=== PATIENT | female | born 1990 | race Two or more races ===

== ENCOUNTER 2018-09-10 01:44 | Inpatient (IN) | payer BC ==
[2018-09-10] MEDS ORDERED: Tranexamic Acid 1,000 MG in Sodium Chloride 0.9% 100 ML IV PRN (17:33)
[2018-09-10] MEDS ORDERED: Misoprostol 200 MCG Tab PO PRN (17:33)
[2018-09-10] MEDS ORDERED: Sodium Chloride 0.9% 2.5 ML Syringe FLUSH PRN (17:33)
[2018-09-10] MEDS ORDERED: Nalbuphine 10 MG/1 ML Vial IVPUSH PRN (17:33)
[2018-09-10] MEDS ORDERED: Water For Irrigation,Sterile 1,000 ML Container IRR PRN (17:33)
[2018-09-10] MEDS ORDERED: Sodium Chloride 0.9% 10 ML Syringe FLUSH PRN (17:33)
[2018-09-10] MEDS ORDERED: Carboprost Tromethamine 250 MCG/1 ML Amp IM PRN (17:33)
[2018-09-10] MEDS ORDERED: Methylergonovine 0.2 MG/1 ML Amp IM PRN (17:33)
[2018-09-10] MEDS ORDERED: Sodium Chloride 0.9% 10 ML SDV IV PRN (17:33)
[2018-09-10] MEDS ORDERED: Lidocaine 1% 50 ML MDV INJECT PRN (17:33)
[2018-09-10] MEDS ORDERED: Terbutaline 1 MG/ML SDV SUBCUT PRN (17:38)
[2018-09-10] MEDS ORDERED: Misoprostol 25 MCG (1/4 of 100 MCG) Tab VAG PRN ×2 (17:38)
[2018-09-10] MEDS ORDERED: Ondansetron 4 MG/2 ML SDV IVPUSH PRN (17:42)
[2018-09-10] MEDS ORDERED: Oxytocin/0.9 % Sodium Chloride 30 UNIT/500 ML BAG IV SCH ×2 (17:45)
[2018-09-11] MEDS: Butorphanol 1 MG/ML SDV IVPUSH PRN ×4 (03:38→08:56)
[2018-09-11] MEDS: Lactated Ringers 1,000 ML IV SCH ×2 (09:10→12:31)
--- NOTE | 2018-09-11 09:30 | PCM.PREANE ---
Preanesthetic Assessment - Anesthesia/Transfusion/Family Hx Anesthesia History: Prior Anesthesia Without Reaction Family History of Anesthesia Reaction: No Transfusion History: No Prior Transfusion(s) - Review of Systems General: No Symptoms Pulmonary: No Symptoms Cardiovascular: No Symptoms Gastrointestinal: No Symptoms Neurological: No Symptoms Other: Reports: None - Physical Assessment Height: 5 ft 5 in Weight: 105.687 kg ASA Class: 2 Mental Status: Alert & Oriented x3 Airway Class: Mallampati = 2 Dentition: Reports: Normal Dentition Thyro-Mental Finger Breadths: 3 Mouth Opening Finger Breadths: 3 ROM/Head Extension: Full Lungs: Clear to Auscultation, Normal Respiratory Effort Cardiovascular: Regular Rate, Regular Rhythm - Lab Values: Laboratory Last Values WBC 13.46 K/uL (4.0-11.0) H 09/10/18 18: RBC 4.62 M/uL (4.30-5.90) 09/10/18 18:01 Hgb 14.3 g/dL (12.0-16.0) 09/10/18 18: Hct 42.1 % (36.0-46.0) 09/10/18 18:01 MCV 91.1 fL (80.0-98.0) 09/10/18 18:01 MCH 31.0 pg (27.0-32.0) 09/10/18 18:01 MCHC 34.0 g/dL (31.0-37.0) 09/10/18 18:01 RDW Std Deviation 46.2 fl (28.0-62.0) 09/10/18 18:01 RDW Coeff of Beatrice 14 % (11.0-15.0) 09/10/18 18:01 Plt Count 266 K/uL (150-400) 09/10/18 18:01 MPV 10.10 fL (7.40-12.00) 09/10/18 18:01 Nucleated RBC % 0.0 /100WBC 09/10/18 18:01 Nucleated RBCs # 0 K/uL 09/10/18 18:01 Blood Type O POSITIVE 09/10/18 18:01 Antibody Screen NEGATIVE 09/10/18 18:01 - Allergies Allergies/Adverse Reactions: Allergies Allergy/AdvReac Type Severity Reaction Status Date / Time No Known Allergies Allergy Verified 07/25/18 13:16 - Acknowledgements Anesthesia Type Planned: Epidural Pt an Appropriate Candidate for the Planned Anesthesia: Yes Alternatives and Risks of Anesthesia Discussed w Pt/Guardian: Yes Pt/Guardian Understands and Agrees with Anesthesia Plan: Yes PreAnesthesia Questionnaire HEENT History: Reports: None Cardiovascular History: Reports: None Respiratory History: Reports: None Gastrointestinal History: Reports: Chronic Constipation, GERD Genitourinary History: Reports: None Musculoskeletal History: Reports: None Neurological History: Reports: Migraines Psychiatric History: Reports: None Endocrine/Metabolic History: Reports: Obesity/BMI 30+ Hematologic History: Reports: None Immunologic History: Reports: None Oncologic (Cancer) History: Reports: None Dermatologic History: Reports: None - Infectious Disease History Infectious Disease History: Reports: Hepatitis C - Past Surgical History Head Surgeries/Procedures: Reports: Other (See Below) - SUBSTANCE USE Tobacco Use Within Last Twelve Months: No Recreational Drug Use History: No - HOME MEDS Home Medications: Home Meds Cyclobenzaprine [Flexeril] 10 mg PO TID PRN 7 Days tablet 04/28/16 [Rx] Diclofenac Sodium [Voltaren] 50 mg PO TIDMEALS #20 tab.ec 04/28/16 [Rx] - CURRENT (IN HOUSE) MEDS Current Meds: Current Medications Butorphanol Tartrate (Stadol) 1 mg IVPUSH Q1H PRN PRN Reason: Pain Last Admin: 09/11/18 08:56 Dose: 1 mg Carboprost Tromethamine (Hemabate Ds) 250 mcg IM ASDIRECTED PRN PRN Reason: Post Hemorrhage Lactated Ringer's (Ringers, Lactated) 1,000 mls @ 150 mls/hr IV ASDIRECTED JAVI Oxytocin/Sodium Chloride (Oxytocin 30 Unit/500 Ml-Ns) 30 unit in 500 mls @ 500 mls/hr IV TITRATE JAVI Tranexamic Acid 1,000 mg/ (Sodium Chloride) 110 mls @ 660 mls/hr IV ONETIME PRN PRN Reason: Bleeding Oxytocin/Sodium Chloride (Oxytocin 30 Unit/500 Ml-Ns) 30 unit in 500 mls @ 2 mls/hr IV TITRATE JAVI; Protocol Last Titration: 09/11/18 06:45 Dose: 6 munits/min, 6 mls/hr Lidocaine HCl (Xylocaine 1%) 50 ml INJECT ONETIME PRN PRN Reason: Laceration repair Methylergonovine Maleate (Methergine) 0.2 mg IM ASDIRECTED PRN PRN Reason: Post Hemorrhage Misoprostol (Cytotec) 200 mcg PO ONETIME PRN PRN Reason: Post Hemorrhage Misoprostol (Cytotec) 25 mcg VAG ONETIME PRN PRN Reason: Cervical Ripening Last Admin: 09/10/18 18:29 Dose: 25 mcg Misoprostol (Cytotec) 25 mcg VAG Q6H PRN PRN Reason: Cervical Ripening Nalbuphine HCl (Nubain) 10 mg IVPUSH Q1H PRN PRN Reason: Pain (severe 7-10) Ondansetron HCl (Zofran) 4 mg IVPUSH Q6H PRN PRN Reason: Nausea/Vomiting Sodium Chloride (Saline Flush) 10 ml FLUSH ASDIRECTED PRN PRN Reason: Keep Vein Open Sodium Chloride (Saline Flush) 2.5 ml FLUSH ASDIRECTED PRN PRN Reason: Keep Vein Open Sodium Chloride (Normal Saline) 10 ml IV ASDIRECTED PRN PRN Reason: IV Use Sterile Water (Sterile Water For Irrigation) 1,000 ml IRR ASDIRECTED PRN PRN Reason: delivery Terbutaline Sulfate (Brethine) 0.25 mg SUBCUT ASDIRECTED PRN PRN Reason: Tacysystole
[2018-09-12] MEDS ORDERED: Morphine PF 10 MG/10 ML SDV ONE (01:20)
[2018-09-12] MEDS ORDERED: Meperidine PF 25 MG/ML Syringe ONE (01:50)
[2018-09-12] MEDS ORDERED: Octyl 2-Cyanoacrylate 1 Tube ONE (02:08)
[2018-09-12] MEDS ORDERED: Nalbuphine 10 MG/1 ML Vial IVPUSH PRN (02:31)
[2018-09-12] MEDS ORDERED: fentaNYL 100 MCG/2 ML SDV IVPUSH PRN (02:31)
--- NOTE | 2018-09-12 02:48 | PCM.OPNOTE ---
- General Post-Op/Procedure Note Date of Surgery/Procedure: 09/12/18 Operative Procedure(s): primary low transverse Findings: liveborn female 7/9 ROP position. Pre Op Diagnosis: 41 4/7 weeks, postdates induction arrest of dilatation. Post-Op Diagnosis: Same Primary Surgeon: Cristina Martinez Secondary Surgeon: Lakshmi Espinal Anesthesia Provider: Matt Tinoco Ribber: Matt Veras Pathology: none Fluid Replacement, Intraop: 900 Output, Urine Amount: 250 EBL in mLs: 500 Complications: None Known Condition: Good Free Text/Narrative:: Intake & Output 09/11/18 09/11/18 09/12/18 14:59 22:59 06:59 Output Total 250 Balance -250
[2018-09-12] MEDS ORDERED: Bisacodyl 10 MG Supp RECTAL PRN (02:50)
[2018-09-12] MEDS ORDERED: Acetaminophen/oxyCODONE 325-5 MG Tab PO PRN ×2 (02:50)
[2018-09-12] MEDS ORDERED: Ondansetron 4 MG/2 ML SDV IVPUSH PRN (02:50)
[2018-09-12] MEDS ORDERED: diphenhydrAMINE 50 MG/ML SDV IVPUSH PRN (02:50)
[2018-09-12] MEDS ORDERED: Ibuprofen 800 MG Tab PO PRN (02:50)
--- NOTE | 2018-09-12 02:53 | PCM.POSTAN ---
POST ANESTHESIA ASSESSMENT - MENTAL STATUS Mental Status: Alert, Oriented - VITAL SIGNS Pulse Rate: 102 SaO2: 97 Resp Rate: 20 Blood Pressure: 116/68 - RESPIRATORY Respiratory Status: Respiratory Rate WNL, Airway Patent, O2 Saturation Stable - CARDIOVASCULAR CV Status: Pulse Rate WNL, Blood Pressure Stable - GASTROINTESTINAL GI Status: No Symptoms - PAIN Pain Score: 0 - POST OP HYDRATION Hydration Status: Adequate & Stable
[2018-09-12] MEDS ORDERED: Ketorolac 30 MG/ML SDV ONE (02:59)
[2018-09-12] MEDS ORDERED: Lactated Ringers 1,000 ML IV SCH (03:00)
[2018-09-12] MEDS: Ketorolac 30 MG/ML SDV IVPUSH SCH ×4 (03:00→21:17)
--- NOTE | 2018-09-12 03:31 | OR ---
SURGEON: Cristina Martinez M.D. DATE OF PROCEDURE: 09/12/2018 PREOPERATIVE DIAGNOSES: 1. A 41 and 4/7th week intrauterine . 2. Postdates induction of labor. 3. Arrest of dilatation. POSTOPERATIVE DIAGNOSES: 1. A 41 and 4/7th week intrauterine . 2. Postdates induction of labor. 3. Arrest of dilatation. PROCEDURE: Primary low-transverse section. PRIMARY SURGEON: Cristina Martinez M.D. ANESTHESIA: Epidural. ESTIMATED BLOOD LOSS: 500 mL. FLUIDS: 900 mL of crystalloid. URINE OUTPUT: 250 mL. FINDINGS: Live-born female, score 7 and 9. Weight of 3960 g. Right occiput, posterior position. Normal-appearing uterus, tubes, and ovaries. COMPLICATIONS: None known. DISPOSITION: Stable to recovery. BRIEF HISTORY: This is a 28-year-old female, G1, P0. She presents at 41 and 2/7th weeks' gestation for induction of labor. She received Cytotec overnight. She spontaneously ruptured early at about 7 in the morning on 09/11. She was noted to have meconium. She had alternating episodes of category 1 heart tones with episodes of minimal variability, but no decelerations throughout her labor. She had an intrauterine pressure catheter placed at approximately 1 p.m. on 09/11, and Pitocin had been initiated, and there were low amplitude frequent contractions every 1 to 2 minutes. Therefore, the Pitocin was discontinued and restarted and continued up to a maximum of 20 milliunits per minute. She by 7:00 p.m. had been progressed to 6 cm, by 1:00 a.m., she had not progressed beyond this, and the baby was beginning to become tachycardic in the 160s to 170s. Therefore, I recommended proceeding with a primary delivery due to arrest of dilatation with risks discussed including bleeding, infection, injury to bowel, bladder, blood vessels, ureters, or other organs; risk of thromboembolic event, risk of anesthesia. Understanding all these risks, she does desire to proceed. DESCRIPTION OF PROCEDURE: With the patient in the left tilt position, under adequate epidural analgesia, the abdomen was prepped with chlorhexidine and draped in the usual fashion for abdominal surgery. SCDs were in place. Petty catheter had been placed, and an appropriate time-out was held. Please note, immediately prior to the time-out for this surgery, I was called out of the room for a very brief time period for vaginal delivery and returned and proceeded with the . After documentation of adequate analgesia, a transverse curvilinear incision was made 2 cm cephalad from the pubic symphysis and carried through subcutaneous tissue to the fascia, which was scored transversely in the midline. The fascial incision was extended laterally using curved Espinal scissors. The fascia was elevated from the underlying rectus muscle using sharp and blunt dissection. The rectus muscles were bluntly in the midline, and the incision was extended using sharp and blunt dissection. The Bret O retractor was placed. The visceroperitoneum over the lower uterine segment was incised to develop an adequate bladder flap. A transverse curvilinear incision was made over the lower uterine segment using a scalpel, and a finger was used to enter the amniotic cavity. Thick meconium was noted. The head was delivered via the uterine incision with subsequent delivery of the 's shoulders and body. The infant was bulb suctioned by nose and mouth, and after the cord had ceased to pulsate, it was doubly clamped and cut. The infant was handed to the clay miller in attendance at delivery. The was a live-born female, score of 7 and 9, weighing 3960 g. Cord blood was collected for cord ABGs as well as routine cord blood sampling. Pitocin was initiated after delivery of the to assist with deliver the placenta, which was delivered with fundal massage. The uterus was cleaned with a dry laparotomy tape. The uterine incision was closed with a running lock suture of 0 Polysorb followed by an imbricating layer of 0 Polysorb, [id number] suture was placed in the midline for complete hemostasis. The pericolic gutters and posterior cul-de-sac were irrigated. The tubes and ovaries were inspected and were normal. The uterine incision was inspected and was hemostatic. The Bret O retractor was removed. The uterine incision was again inspected in room and confirmed hemostasis. The rectus muscle and peritoneum were loosely approximated in midline using a running mattress suture of 0 Polysorb. The posterior aspect of the fascia was inspected and was hemostatic. The fascial incision was closed with a running suture of 0 Polysorb. The subcutaneous tissue was irrigated. Any areas of bleeding that were noted were cauterized. The deep subcutaneous tissue was reapproximated with 0 Polysorb. The skin was closed with a running suture of 3-0 Monocryl, followed by Dermabond. Final sponge, needle, and instrument counts were reported as correct. There were no complications. The mother and baby are in recovery in good condition. SIDRA BOOTHE /[id number]
[2018-09-12] MEDS: Docusate Sodium 100 MG Cap PO SCH ×2 (09:00→21:18)
--- NOTE | 2018-09-12 09:31 | PCM48HPAN ---
Post Anesthesia Note - EVALUATION WITHIN 48HRS OF ANESTHETIC Vital Signs in Normal Range: Yes Patient Participated in Evaluation: Yes Respiratory Function Stable: Yes Airway Patent: Yes Cardiovascular Function Stable: Yes Hydration Status Stable: Yes Pain Control Satisfactory: Yes Nausea and Vomiting Control Satisfactory: Yes Mental Status Recovered: Yes Pulse Rate: 96 SaO2: 100 (2 LPM) Resp Rate: 18 Blood Pressure: 114/66
--- NOTE | 2018-09-12 09:53 | PCM.PNPP ---
- General Info Date of Service: 09/12/18 Functional Status: Reports: Pain Controlled, Tolerating Diet. Denies: Ambulating, Urinating - Patient Data Vital Signs - Most Recent: Last Vital Signs Temp 36.6 C 09/12/18 08:00 Pulse 96 09/12/18 09:30 Resp 18 09/12/18 09:30 BP 114/66 09/12/18 09:30 Pulse Ox 100 09/12/18 09:30 Weight - Most Recent: 105.687 kg I&O - Last 24 Hours: Intake & Output 09/11/18 09/12/18 09/12/18 22:59 06:59 14:59 Intake Total 2300 Output Total 700 Balance 1600 Lab Results - Last 24 Hours: Laboratory Results - last 24 hr 09/12/18 Range/Units 01:45 Cord VBG pH 7.358 (7.25-7.45) Cord VBG Base Excess -3 (-10--2) Med Orders - Current: Current Medications Bisacodyl (Dulcolax) 10 mg RECTAL ONETIME PRN PRN Reason: Constipation Diphenhydramine HCl (Benadryl) 25 mg IVPUSH Q6H PRN PRN Reason: Itching or Nausea Docusate Sodium (Colace) 100 mg PO BID [facility] Last Admin: 09/12/18 09:00 Dose: 100 mg Emollient Ointment (Lansinoh Hpa) 0 gm TOP ASDIRECTED PRN PRN Reason: Sore Nipples Fentanyl (Sublimaze) 50 mcg IVPUSH Q5M PRN PRN Reason: Pain (severe 7-10) Stop: 09/13/18 02:32 Lactated Ringer's (Ringers, Lactated) 1,000 mls @ 125 mls/hr IV ASDIRECTED [facility] Last Admin: 09/12/18 03:59 Dose: 125 mls/hr Ibuprofen (Motrin) 800 mg PO Q8H PRN PRN Reason: mild pain or fever Ketorolac Tromethamine (Toradol) 30 mg IVPUSH Q6H [facility] Stop: 09/13/18 03:01 Last Admin: 09/12/18 09:00 Dose: 30 mg Nalbuphine HCl (Nubain) 2.5 mg IVPUSH Q3H PRN PRN Reason: Pruritis Stop: 09/13/18 02:32 Ondansetron HCl (Zofran) 4 mg IVPUSH Q4H PRN PRN Reason: Nausea/Vomiting Oxycodone/Acetaminophen (Percocet 325-5 Mg) 1 tab PO ONETIME PRN PRN Reason: Pain (moderate 4-6) Oxycodone/Acetaminophen (Percocet 325-5 Mg) 1 tab PO Q4H PRN PRN Reason: Pain (moderate 4-6) Oxycodone/Acetaminophen (Percocet 325-5 Mg) 2 tab PO Q4H PRN PRN Reason: Pain (moderate 4-6) Discontinued Medications Butorphanol Tartrate (Stadol) 1 mg IVPUSH Q1H PRN PRN Reason: Pain Last Admin: 09/11/18 08:56 Dose: 1 mg Carboprost Tromethamine (Hemabate Ds) 250 mcg IM ASDIRECTED PRN PRN Reason: Post Hemorrhage Lactated Ringer's (Ringers, Lactated) 1,000 mls @ 150 mls/hr IV ASDIRECTED JAVI Last Admin: 09/11/18 12:31 Dose: 150 mls/hr Oxytocin/Sodium Chloride (Oxytocin 30 Unit/500 Ml-Ns) 30 unit in 500 mls @ 500 mls/hr IV TITRATE JAVI Tranexamic Acid 1,000 mg/ (Sodium Chloride) 110 mls @ 660 mls/hr IV ONETIME PRN PRN Reason: Bleeding Oxytocin/Sodium Chloride (Oxytocin 30 Unit/500 Ml-Ns) 30 unit in 500 mls @ 2 mls/hr IV TITRATE JAVI; Protocol Last Titration: 09/12/18 00:20 Dose: 28 munits/min, 28 mls/hr Fentanyl/Bupivacaine HCl (Hjodzwvf-Ialsw-Ax 2 Mcg/Ml-0.125%) Confirm Administered Dose 100 mls @ as directed .ROUTE .STK-MED ONE Stop: 09/11/18 09:32 Fentanyl/Bupivacaine HCl (Cvkhvdcg-Bndpw-Ni 2 Mcg/Ml-0.125%) Confirm Administered Dose 100 mls @ as directed .ROUTE .STK-MED ONE Stop: 09/11/18 19:53 Ibuprofen (Motrin) 800 mg PO Q8H PRN PRN Reason: mild pain or fever Ketorolac Tromethamine (Toradol) Confirm Administered Dose 30 mg .ROUTE .STK- MED ONE Stop: 09/12/18 03:00 Last Admin: 09/12/18 08:51 Dose: Not Given Lidocaine HCl (Xylocaine 1%) 50 ml INJECT ONETIME PRN PRN Reason: Laceration repair Meperidine HCl (Demerol) Confirm Administered Dose 25 mg .ROUTE .STK-MED ONE Stop: 09/12/18 01:51 Methylergonovine Maleate (Methergine) 0.2 mg IM ASDIRECTED PRN PRN Reason: Post Hemorrhage Misoprostol (Cytotec) 200 mcg PO ONETIME PRN PRN Reason: Post Hemorrhage Misoprostol (Cytotec) 25 mcg VAG ONETIME PRN PRN Reason: Cervical Ripening Last Admin: 09/10/18 18:29 Dose: 25 mcg Misoprostol (Cytotec) 25 mcg VAG Q6H PRN PRN Reason: Cervical Ripening Morphine Sulfate (Duramorph Pf) Confirm Administered Dose 10 mg .ROUTE .STK-MED ONE Stop: 09/12/18 01:21 Nalbuphine HCl (Nubain) 10 mg IVPUSH Q1H PRN PRN Reason: Pain (severe 7-10) Octyl Cyanoacrylate (Dermabond Advance) Confirm Administered Dose 1 applic .ROUTE .STExtend Media-MED ONE Stop: 09/12/18 02:09 Ondansetron HCl (Zofran) 4 mg IVPUSH Q6H PRN PRN Reason: Nausea/Vomiting Sodium Chloride (Saline Flush) 10 ml FLUSH ASDIRECTED PRN PRN Reason: Keep Vein Open Sodium Chloride (Saline Flush) 2.5 ml FLUSH ASDIRECTED PRN PRN Reason: Keep Vein Open Sodium Chloride (Normal Saline) 10 ml IV ASDIRECTED PRN PRN Reason: IV Use Sterile Water (Sterile Water For Irrigation) 1,000 ml IRR ASDIRECTED PRN PRN Reason: delivery Terbutaline Sulfate (Brethine) 0.25 mg SUBCUT ASDIRECTED PRN PRN Reason: Tacysystole - Interaction Infant Disposition, : in Room with Family Interaction: Holding Infant Feeding: Breastfed ; Nursed Well Support Person: , Mother - Recovery Exam Fundal Tone: Firm Fundal Level: 1 Fingerbreadths Below Umbilicus Fundal Placement: Midline Lochia Amount: Small Lochia Color: Rubra/Red Perineum Description: Intact, Minimal Bruising/Swelling Episiotomy/Laceration: None Bladder Status: Indwelling Catheter in Place Urinary Elimination: Indwelling Catheter - Exam General: Alert, Oriented HEENT: Pupils Equal Lungs: Normal Respiratory Effort GI/Abdominal Exam: Normal Bowel Sounds, Soft, Non-Tender Extremities: Normal Inspection, Non-Tender. No: No Pedal Edema (2+) Skin: Warm, Dry, Intact Wound/Incisions: Dressing Dry and Intact Neurological: No New Focal Deficit Psy/Mental Status: Alert, Normal Affect, Normal Mood - Problem List & Annotations (1) Arrest of dilation, delivered, current hospitalization SNOMED Code(s): 89361237, 706122071 Code(s): O62.1 - SECONDARY UTERINE INERTIA Status: Acute Current Visit: Yes (2) delivery delivered SNOMED Code(s): 339308628 Code(s): O82 - ENCOUNTER FOR DELIVERY WITHOUT INDICATION Status: Acute Current Visit: Yes - Problem List Review Problem List Initiated/Reviewed/Updated: Yes - My Orders Last 24 Hours: My Active Orders 09/12/18 02:50 Patient Status [ADT] Routine Ambulate [RC] PER UNIT ROUTINE Communication Order [RC] PER UNIT ROUTINE Communication Order [RC] PER UNIT ROUTINE Communication Order [RC] Per Unit Routine May Shower [RC] ASDIRECTED RT Incentive Spirometry [RC] Q2HWA Vital Signs [RC] PER UNIT ROUTINE Acetaminophen/oxyCODONE [Percocet 325-5 MG] 1 tab PO Q4H PRN Acetaminophen/oxyCODONE [Percocet 325-5 MG] 2 tab PO Q4H PRN Bisacodyl [Dulcolax] 10 mg RECTAL ONETIME PRN Lanolin [Lansinoh HPA] See Dose Instructions TOP ASDIRECTED PRN Ondansetron [Zofran] 4 mg IVPUSH Q4H PRN diphenhydrAMINE [Benadryl] 25 mg IVPUSH Q6H PRN Abdominal Binder [OM.PC] Urgent Assess Lochia [WOMSER] Per Unit Routine Assess Uterine Involution [WOMSER] Per Unit Routine Breast Pump [WOMSER] Per Unit Routine Peripheral IV Discontinue [OM.PC] Routine Sequential Compression Device [OM.PC] Per Unit Routine Resuscitation Status Routine 09/12/18 02:51 Antiembolic Devices [RC] PER UNIT ROUTINE Notify Provider Intake and Out [RC] ASDIRECTED Notify Provider Vital Signs [RC] ASDIRECTED 09/12/18 03:00 Ketorolac [Toradol] 30 mg IVPUSH Q6H Lactated Ringers [Ringers, Lactated] 1,000 ml IV ASDIRECTED 09/12/18 09:00 Docusate Sodium [Colace] 100 mg PO BID 09/12/18 Breakfast Regular Diet [DIET] 09/13/18 05:11 HEMOGLOBIN/HEMATOCRIT,HH [HEME] Timed 09/13/18 11:00 Ibuprofen [Motrin] 800 mg PO Q8H PRN - Assessment Assessment:: POD#0 after for arrest of dilatation, gestational diabetes. Stable, pain well controlled. - Plan Plan:: continue postop care.
[2018-09-13] MEDS: Lanolin 100% Cream 7 GM Tube TOP PRN (00:28)
[2018-09-13] MEDS: Ketorolac 30 MG/ML SDV IVPUSH SCH (03:31)
[2018-09-13 06:30] LABS: CHLORIDE,CL 107 mmol/L (98-107); SODIUM,NA 139 mmol/L (136-145)
[2018-09-13] MEDS: Docusate Sodium 100 MG Cap PO SCH ×2 (08:17→21:10)
[2018-09-13] MEDS: Ibuprofen 800 MG Tab PO PRN ×2 (13:54→22:46)
[2018-09-13] MEDS: Acetaminophen/oxyCODONE 325-5 MG Tab PO PRN (16:27)
[2018-09-14] MEDS: Acetaminophen/oxyCODONE 325-5 MG Tab PO PRN ×2 (01:59→09:09)
[2018-09-14] MEDS: Docusate Sodium 100 MG Cap PO SCH ×2 (07:53→08:27)
[2018-09-14] MEDS: Ibuprofen 800 MG Tab PO PRN (07:53)
[2018-09-14] MEDS: Lanolin 100% Cream 7 GM Tube TOP PRN (07:54)
[2018-09-14 08:25] VITALS: BP 138/74
--- NOTE | 2018-09-14 09:04 | PCM.PNPP ---
- General Info Date of Service: 09/14/18 Functional Status: Reports: Pain Controlled, Tolerating Diet, Ambulating, Urinating, Other (worried about breast milk, baby having good wet diapers. ) - Review of Systems General: Reports: No Symptoms HEENT: Reports: No Symptoms Pulmonary: Reports: No Symptoms Cardiovascular: Reports: No Symptoms Gastrointestinal: Reports: No Symptoms Genitourinary: Reports: No Symptoms Musculoskeletal: Reports: No Symptoms Skin: Reports: No Symptoms Neurological: Reports: No Symptoms Psychiatric: Reports: No Symptoms - Patient Data Vital Signs - Most Recent: Last Vital Signs Temp 36.6 C 09/14/18 07:32 Pulse 88 09/14/18 07:32 Resp 16 09/14/18 07:32 BP 138/74 09/14/18 07:32 Pulse Ox 98 09/14/18 07:32 Weight - Most Recent: 105.687 kg Med Orders - Current: Current Medications Bisacodyl (Dulcolax) 10 mg RECTAL ONETIME PRN PRN Reason: Constipation Diphenhydramine HCl (Benadryl) 25 mg IVPUSH Q6H PRN PRN Reason: Itching or Nausea Docusate Sodium (Colace) 100 mg PO BID [facility] Last Admin: 09/14/18 08:27 Dose: Not Given Emollient Ointment (Lansinoh Hpa) 0 gm TOP ASDIRECTED PRN PRN Reason: Sore Nipples Last Admin: 09/14/18 07:54 Dose: 1 tube Lactated Ringer's (Ringers, Lactated) 1,000 mls @ 125 mls/hr IV ASDIRECTED [facility] Last Admin: 09/12/18 03:59 Dose: 125 mls/hr Ibuprofen (Motrin) 800 mg PO Q8H PRN PRN Reason: mild pain or fever Last Admin: 09/14/18 07:53 Dose: 800 mg Ondansetron HCl (Zofran) 4 mg IVPUSH Q4H PRN PRN Reason: Nausea/Vomiting Oxycodone/Acetaminophen (Percocet 325-5 Mg) 1 tab PO ONETIME PRN PRN Reason: Pain (moderate 4-6) Last Admin: 09/14/18 01:59 Dose: 1 tab Oxycodone/Acetaminophen (Percocet 325-5 Mg) 1 tab PO Q4H PRN PRN Reason: Pain (moderate 4-6) Last Admin: 09/13/18 08:16 Dose: 1 tab Oxycodone/Acetaminophen (Percocet 325-5 Mg) 2 tab PO Q4H PRN PRN Reason: Pain (moderate 4-6) Discontinued Medications Butorphanol Tartrate (Stadol) 1 mg IVPUSH Q1H PRN PRN Reason: Pain Last Admin: 09/11/18 08:56 Dose: 1 mg Carboprost Tromethamine (Hemabate Ds) 250 mcg IM ASDIRECTED PRN PRN Reason: Post Hemorrhage Fentanyl (Sublimaze) 50 mcg IVPUSH Q5M PRN PRN Reason: Pain (severe 7-10) Stop: 09/13/18 02:32 Lactated Ringer's (Ringers, Lactated) 1,000 mls @ 150 mls/hr IV ASDIRECTED [facility]AVI Last Admin: 09/11/18 12:31 Dose: 150 mls/hr Oxytocin/Sodium Chloride (Oxytocin 30 Unit/500 Ml-Ns) 30 unit in 500 mls @ 500 mls/hr IV TITRATE JAVI Tranexamic Acid 1,000 mg/ (Sodium Chloride) 110 mls @ 660 mls/hr IV ONETIME PRN PRN Reason: Bleeding Oxytocin/Sodium Chloride (Oxytocin 30 Unit/500 Ml-Ns) 30 unit in 500 mls @ 2 mls/hr IV TITRATE JAVI; Protocol Last Titration: 09/12/18 00:20 Dose: 28 munits/min, 28 mls/hr Fentanyl/Bupivacaine HCl (Aazogbly-Yidyh-Ph 2 Mcg/Ml-0.125%) Confirm Administered Dose 100 mls @ as directed .ROUTE .STK-MED ONE Stop: 09/11/18 09:32 Fentanyl/Bupivacaine HCl (Yawvygei-Fjlhp-Ix 2 Mcg/Ml-0.125%) Confirm Administered Dose 100 mls @ as directed .ROUTE .STK-MED ONE Stop: 09/11/18 19:53 Ibuprofen (Motrin) 800 mg PO Q8H PRN PRN Reason: mild pain or fever Ketorolac Tromethamine (Toradol) 30 mg IVPUSH Q6H JAVI Stop: 09/13/18 03:01 Last Admin: 09/13/18 03:31 Dose: 30 mg Ketorolac Tromethamine (Toradol) Confirm Administered Dose 30 mg .ROUTE .STK- MED ONE Stop: 09/12/18 03:00 Last Admin: 09/12/18 08:51 Dose: Not Given Lidocaine HCl (Xylocaine 1%) 50 ml INJECT ONETIME PRN PRN Reason: Laceration repair Meperidine HCl (Demerol) Confirm Administered Dose 25 mg .ROUTE .STK-MED ONE Stop: 09/12/18 01:51 Methylergonovine Maleate (Methergine) 0.2 mg IM ASDIRECTED PRN PRN Reason: Post Hemorrhage Misoprostol (Cytotec) 200 mcg PO ONETIME PRN PRN Reason: Post Hemorrhage Misoprostol (Cytotec) 25 mcg VAG ONETIME PRN PRN Reason: Cervical Ripening Last Admin: 09/10/18 18:29 Dose: 25 mcg Misoprostol (Cytotec) 25 mcg VAG Q6H PRN PRN Reason: Cervical Ripening Morphine Sulfate (Duramorph Pf) Confirm Administered Dose 10 mg .ROUTE .STK-MED ONE Stop: 09/12/18 01:21 Nalbuphine HCl (Nubain) 10 mg IVPUSH Q1H PRN PRN Reason: Pain (severe 7-10) Nalbuphine HCl (Nubain) 2.5 mg IVPUSH Q3H PRN PRN Reason: Pruritis Stop: 09/13/18 02:32 Octyl Cyanoacrylate (Dermabond Advance) Confirm Administered Dose 1 applic .ROUTE .STK-MED ONE Stop: 09/12/18 02:09 Ondansetron HCl (Zofran) 4 mg IVPUSH Q6H PRN PRN Reason: Nausea/Vomiting Sodium Chloride (Saline Flush) 10 ml FLUSH ASDIRECTED PRN PRN Reason: Keep Vein Open Sodium Chloride (Saline Flush) 2.5 ml FLUSH ASDIRECTED PRN PRN Reason: Keep Vein Open Sodium Chloride (Normal Saline) 10 ml IV ASDIRECTED PRN PRN Reason: IV Use Sterile Water (Sterile Water For Irrigation) 1,000 ml IRR ASDIRECTED PRN PRN Reason: delivery Terbutaline Sulfate (Brethine) 0.25 mg SUBCUT ASDIRECTED PRN PRN Reason: Tacysystole - Infant Interaction Infant Disposition, : Summers in Room with Family Interaction: Holding Infant Feeding: Breastfed ; Nursed Well Support Person: , Mother - Recovery Exam Fundal Tone: Firm Fundal Level: 1 Fingerbreadths Below Umbilicus Fundal Placement: Midline Lochia Amount: Scant Lochia Color: Rubra/Red Perineum Description: Intact, Minimal Bruising/Swelling Episiotomy/Laceration: None Bladder Status: Voiding Urinary Elimination: Voided - Exam General: Alert, Oriented HEENT: Pupils Equal Neck: Supple Lungs: Normal Respiratory Effort GI/Abdominal Exam: Soft, Non-Tender, No Organomegaly, No Distention Extremities: Normal Inspection, Non-Tender. No: No Pedal Edema (1+) Skin: Warm, Dry, Intact Wound/Incisions: Healing Well Neurological: No New Focal Deficit Psy/Mental Status: Alert, Normal Affect, Normal Mood - Problem List & Annotations (1) Arrest of dilation, delivered, current hospitalization SNOMED Code(s): 39815145, 387356960 Code(s): O62.1 - SECONDARY UTERINE INERTIA Status: Acute Current Visit: Yes (2) delivery delivered SNOMED Code(s): 523376927 Code(s): O82 - ENCOUNTER FOR DELIVERY WITHOUT INDICATION Status: Acute Current Visit: Yes - Problem List Review Problem List Initiated/Reviewed/Updated: Yes - My Orders Last 24 Hours: My Active Orders 09/13/18 11:00 Ibuprofen [Motrin] 800 mg PO Q8H PRN 09/14/18 09:02 Ready for Discharge [RC] PER UNIT ROUTINE - Assessment Assessment:: POD#2 after for arrest of dilatation, gestational diabetes. Stable, pain well controlled. Would like to be discharged today. - Plan Plan:: Dismiss to home, discharge instructions reviewed.
== END 2018-09-14 11:53 | disposition home or self-care (01) | DRG 540 ==
LOC: MW.OB 01:44 → OBSVTOIN 09-12 01:44 → MW.OB 09-12 08:55
PROVIDERS: ADMIT Obstetrics & Gynecology; ATTEND Obstetrics & Gynecology
PROC: 00HU33Z Insertion of Infusion Device into Spinal Canal, Percutaneous Approach (ICD-10-PCS; 2018-09-11)
PROC: 3E0R3BZ Introduction of Anesthetic Agent into Spinal Canal, Percutaneous Approach (ICD-10-PCS; 2018-09-11)
PROC: 10907ZC Drainage of Amniotic Fluid, Therapeutic from Products of Conception, Via Natural or Artificial Opening (ICD-10-PCS; principal; 2018-09-12)
PROC: 10H07YZ Insertion of Other Device into Products of Conception, Via Natural or Artificial Opening (ICD-10-PCS; principal; 2018-09-12)
PROC: 10D00Z1 Extraction of Products of Conception, Low, Open Approach (ICD-10-PCS; principal; 2018-09-12)
PROC: 6A550ZT Pheresis of Cord Blood Stem Cells, Single (ICD-10-PCS; principal; 2018-09-12)
PROC: 3E033VJ Introduction of Other Hormone into Peripheral Vein, Percutaneous Approach (ICD-10-PCS; principal; 2018-09-12)
DX: O48.0 Post-term pregnancy (principal); Z37.0 Single live birth; Z3A.41 41 weeks gestation of pregnancy; O99.354 Diseases of the nervous system complicating childbirth; G43.909 Migraine, unspecified, not intractable, without status migrainosus; O99.62 Diseases of the digestive system complicating childbirth; K21.9 Gastro-esophageal reflux disease without esophagitis; K59.09 Other constipation; O62.1 Secondary uterine inertia; O24.429 Gestational diabetes mellitus in childbirth, unspecified control; O77.0 Labor and delivery complicated by meconium in amniotic fluid; O99.214 Obesity complicating childbirth; E66.9 Obesity, unspecified; O98.42 Viral hepatitis complicating childbirth; B19.20 Unspecified viral hepatitis C without hepatic coma; O64.0XX0 Obstructed labor due to incomplete rotation of fetal head, not applicable or unspecified
CPT/HCPCS: 36415; 59025; 80048; 82803; 85014; 85018; 85027; 86850; 86900; 86901; A9270-GY; J0595; J1885; J2175; J2270; J2590; J7120